=== PATIENT | male | born 1970 | race Caucasian/White ===

== ENCOUNTER 2024-08-22 09:15 | Emergency (ER) | payer SELFPAY ==
[2024-08-22 09:18] VITALS: BP 154/108
--- NOTE | 2024-08-22 10:20 | ED.GENMED ---
History of Present Illness
General
Chief Complaint: Skin Problem
Source: patient
Exam Limitations: none
Time Seen by Provider: 08/22/24 09:47
Nursing documentation reviewed up to this point in time: agreed with
History of Present Illness
History of Present Illness:
54-year-old male presenting to the emergency department today with concerns of swelling to left side of his face over the past 2 days. He claims that he was working in the yard prior to the onset earlier in the day. Symptoms worsening today. No
pain some itchiness. Denies any trouble swallowing or breathing no changes in vision
Past History
Past History
ED Past Medical History: HTN; Negative Asthma, Hypercholesterolemia or NIDDM
ED Past Surgical History: Appendectomy
Social History
Tobacco: Smoker
Alcohol: Occasional
Personal:
Living: with family
Review of Systems
Review of Systems
Allergies reviewed?: Yes
All Other Systems: ROS reviewed and negative except as documented in HPI and ROS
Phy Exam
Physical Exam
Physical Exam:
GENERAL: Alert , in no apparent distress
EYE: pupils equal and reactive
NECK: Supple, no significant adenopathy.
ENT: Redness and irritation to the left side of the face including the area of the periorbital region and lateral left nose. Small grouped vesicles erythematous base some yellow crusting. o/p clr, mmm.
CARDIAC: Regular rate and rhythm .
LUNGS: Clear breath sounds bilaterally, no acute respiratory distress, no wheezes/rales/rhonchi
ABDOMEN: Soft, without focal tenderness, no r/g, no cvat
NEUROLOGICAL: Alert and oriented, no focal neuro deficits
SKIN: Warm and dry, skin intact.
MUSCULOSKELETAL: No edema, well perfused.
PSYCH: Normal and appropriate interaction.
Course
Orders/Labs/Results
Orders:
Orders
08/22/24 10:19
Prednisone [Deltasone] 50 mg PO NOW STA
Vital Signs
Initial and Last Documented VS:
Initial Vital Signs
Temp Pulse Resp BP Pulse Ox
97.7 F 88 18 154/108 100
08/22/24 09:18 08/22/24 09:18 08/22/24 09:18 08/22/24 09:18 08/22/24 09:18
Last Documented Vital Signs
Temp Pulse Resp BP Pulse Ox
97.7 F 88 18 154/108 100
08/22/24 09:18 08/22/24 09:18 08/22/24 09:18 08/22/24 09:18 08/22/24 09:18
MDM/Problems Addressed
MDM/Problems Addressed:
54-year-old male presenting to the emergency department today with concerns of rash to left side of his face. Mostly itchy seem to occur after he was gardening. This appears consistent with likely delayed hypersensitivity reaction potentially from
poison sushma or poison oak. Plan for symptomatic treatment otherwise stable for discharge. No involvement of the eye no difficulty swallowing. No fevers. Does not appear to be consistent with cellulitis.
*Critical Care Note
Total Time (30-74mins, 75-104mins- exclusive of procedures): Not Applicable
ED Attending Note
-
Portions of this chart may have been created with voice recognition software.� Occasional wrong word or��sound alike� substitutions may have occurred due to the inherent limitations of voice recognition software.
Discharge Plan
Departure
Patient Disposition: Home (Routine Discharge)
Date of Disposition: 08/22/24
Time of Disposition: 10:22
Patient with high blood pressure during this ER visit?: No
Condition: Good
Covid-19: Not Applicable
Discharge Problem:
Poison sushma
Instructions: Poison Sushma
Prescriptions:
New
prednisone 10 mg Tablet
See Rx Instructions .ROUTE .COMPLEX Qty: 30 0RF
Rx Instructions:
Take By Mouth:
40 mg daily x3 days, 30 mg daily x3 days,
20 mg daily x3 days, 10 mg daily x3 days.
hydrocortisone 2.5 % cream
1 applic topical BID PRN (Reason: allergic reaction) Qty: 28 0RF
No Action
lisinopril [Prinivil] 20 MG tablet
20 mg PO DAILY
Activity Restrictions/Additional Instructions:
You came to the emergency department today with concerns of swelling to the left side of your face. This appears to consistent with poison sushma. Please use the prescribed indications and use Benadryl as needed for itchiness. Return for any
worsening, new or concerning symptoms.
Interventions
Interventions:
*Risk Screen - Suicide Last Done: 08/22/24 09:18
*General Assessment Last Done: 08/22/24 09:18
*Neglect/Abuse Screening Last Done: 08/22/24 09:18
*ED COVID-19 Vaccine History Last Done: 08/22/24 09:18
ED-Skin Assessment Last Done: 08/22/24 09:54
Discharge Date and Time
Print Language: [id number]
[2024-08-22] MEDS: DELTASONE 50 MG PO (10:26)
== END 2024-08-22 10:42 | disposition home or self-care (01) ==
LOC: EMR 09:15
PROVIDERS: EMERGENCY PHYSICIAN Student in an Organized Health Care Education/Training Program
DX: L23.7 Allergic contact dermatitis due to plants, except food (principal); I10 Essential (primary) hypertension; F17.200 Nicotine dependence, unspecified, uncomplicated; Z90.49 Acquired absence of other specified parts of digestive tract
CPT/HCPCS: 99282